=== PATIENT | male | born 1995 | race Caucasian/White ===

== ENCOUNTER 2016-09-28 17:11 | Emergency (ER) | payer OTHER | END 2016-09-28 18:48 | disposition home or self-care (01) | LOC: ER1 17:11 | DX: S61.012A Laceration without foreign body of left thumb without damage to nail, initial encounter (principal); J45.909 Unspecified asthma, uncomplicated; F17.210 Nicotine dependence, cigarettes, uncomplicated; W25.XXXA Contact with sharp glass, initial encounter | CPT/HCPCS: 12001; 90471; 90715; 99283 ==